=== PATIENT | male | born 1965 ===

== ENCOUNTER 2020-10-04 12:26 | Emergency (ER) | payer OTHER ==
[~2020-10-04] VITALS: Ht 177.8 cm; Wt 83.5 kg
[2020-10-04] MEDS ORDERED: CLONAZEPAM0.5 M1 (12:42)
[2020-10-04] MEDS ORDERED: MEDROLPACK PO (17:34)
== END 2020-10-04 17:55 | disposition home or self-care (01) ==
LOC: ER 12:26
DX: G51.0 Bell's palsy (principal); R20.0 Anesthesia of skin